=== PATIENT | male | born 1965 | race Caucasian/White ===

== ENCOUNTER 2023-02-17 22:36 | Emergency (ER) | payer OTHER ==
--- NOTE | 2023-02-17 23:31 | ERPHSYRPT ---
- History of Present Illness Source: patient, EMS Exam Limitations: other (Poor historian) Patient Subjective Stated Complaint: pt states he got dizzy while outside on his porch and fell backwards onto a table. states he hit his head and his neck on the table. and c/o pain in his rt hip Triage Nursing Assessment: pt alert and oriented, answers questions approp. pt arrive per ambulance and transfers to stretcher with assist of 3. c collar in place. pt moves all extremities without diff. pedal pulse and cap refill wnl. denies numbness or tingling. Physician History: 57 yo WM who was visiting his sister bent over to put his cigarette out became dizzy and fell backward, hitting a table. Pt brought into ER per EMS w C-collar in place. He was given 4mg IV Morphine/4mg IV Zofran per EMS. He complains of a LINCOLN/C-spine pain/Superior T-spine pain which he rates an 8 overall. Pt has a h/o DM/HTN/CAD/Multiple stents/COPD/Tobacco abuse. He denies chest pain/dyspnea/focal weakness. Occurred: just prior to arrival Reason for Fall: became dizzy Injuries/Pain Location: head, neck, back Loss of Consciousness: brief (seconds) Quality: sharpness Severity of Pain-Max: severe Severity of Pain-Current: severe Modifying Factors: Improves With: movement Associated Symptoms (Fall): denies symptoms, dizziness Allergies/Adverse Reactions: No Known Drug Allergies Allergy (Verified 02/17/23 22:59) Home Medications: Atorvastatin Calcium [Lipitor] 80 mg PO DAILY 02/17/23 [History] Clopidogrel Bisulfate [Plavix] 75 mg PO DAILY 02/17/23 [History] carvediloL [Carvedilol] 25 mg PO BID 02/17/23 [History] clonazePAM [Klonopin] 1 mg PO TID 02/17/23 [History] hydrOXYzine HCL [Hydroxyzine HCl] 20 mg PO HS 02/17/23 [History] Hx Tetanus, Diphtheria Vaccination/Date Given: Yes Hx Influenza Vaccination/Date Given: Yes Hx Pneumococcal Vaccination/Date Given: No Immunizations Up to Date: Yes Travel Risk - International Travel Have you traveled outside of the country in past 3 weeks: No - Coronavirus Screening Are you exhibiting any of the following symptoms?: No Close contact with a COVID-19 positive Pt in past 14-21 Days: No - Vaccine Status Have you recieved a Covid-19 vaccination: Yes Sales And Production Manager: [employer] - Review of Systems Constitutional: No Symptoms Eyes: No Symptoms Ears, Nose, & Throat: No Symptoms, Nose Pain Respiratory: No Symptoms Cardiac: No Symptoms Abdominal/Gastrointestinal: No Symptoms Genitourinary Symptoms: No Symptoms Musculoskeletal: Back Pain, Neck Pain Skin: No Symptoms Neurological: No Symptoms Psychological: No Symptoms Endocrine: No Symptoms, Excessive Sweating Hematologic/Lymphatic: No Symptoms Immunological/Allergic: No Symptoms - Past Medical History Cardiac History: Coronary Artery Disease, High Cholesterol, Hypertension Respiratory History: COPD Endocrine Medical History: Diabetes Type II - Past Surgical History Past Surgical History: Yes Cardiac: Cardiac Catheterization, Cardiac Stent Other Surgical History: cervical fusion - Social History Smoking Status: Current every day smoker How long have you smoked: 41yrs Exposure to second hand smoke: No Drug Use: none Patient Lives Alone: No - Nursing Vital Signs Nursing Vital Signs: Initial Vital Signs Temperature 97.3 F 02/17/23 22:42 Pulse Rate 109 H 02/17/23 22:42 Respiratory Rate 16 02/17/23 22:42 Blood Pressure 124/75 02/17/23 22:42 O2 Sat by Pulse Oximetry 88 L 02/17/23 22:42 Pain Scale Pain Intensity 5 Tachy/Borderline sats - Florin Coma Score Best Eye Response (Questa): (4) open spontaneously Best Verbal Response (Questa): (5) oriented Best Motor Response (Florin): (6) obeys commands Florin Total: 15 - Physical Exam General Appearance: no apparent distress Head Injury: tenderness (Mild occiput TTP) Eye Exam: PERRL/EOMI, eyes nml inspection ENT Exam: airway nml, No evidence of ENT injury, No clear fluid (ears), No clear fluid (nose) Neck Exam: supple (C-spine TTP(C-collar in place)) Respiratory/Chest Exam: rales (Faint rales B bases), No chest tenderness, No respiratory distress Cardiovascular Exam: normal heart sounds, regular rate/rhythm, normal peripheral pulses, No murmur Gastrointestinal Exam: soft, normal bowel sounds, No tenderness Back Exam: vertebral tenderness (Superior T-spine TTP) Extremity Exam: normal inspection, pelvis stable Peripheral Pulses: carotid (R): 2+, carotid (L): 2+ Neurologic Exam: alert, oriented x 3, cooperative, maintenance welder II-XII nml as tested, sensation nml, No motor deficits Skin Exam: normal color, warm, dry SpO2 Interpretation: borderline oxygenation SpO2: 88 O2 Delivery: Room Air - Course Nursing assessment & vital signs reviewed: Yes EKG Interpreted by Me: RATE (Sinus tach/Rate 100/Normal QT-QTc/Flat Twaves/No acute ST changes) - CT Exams Head CT Interpretation: Tele-radiologist Report (Nothing acute) Cervical Spine CT Interpretation: Tele-radiologist Report (No fx) Thoracic Spine CT Interpretation: Tele-radiologist Report (No fx RLL mass) Ordered Tests: Active Orders 24 hr Category Date Time Status EKG-ER Only STAT Care 02/17/23 23:25 Completed CERVICAL SPINE WO CONTRAST [CT] Stat Exams 02/17/23 23:24 Completed HEAD WITHOUT CONTRAST [CT] Stat Exams 02/17/23 23:23 Completed THORACIC SPINE W/O CONTRAST [CT] Stat Exams 02/17/23 23:24 Completed Alcohol [ETHYL ALCOHOL] Stat Lab 02/18/23 00:10 Completed TROPONIN Q4H Lab 02/18/23 01:45 Completed TROPONIN Q4H Lab 02/18/23 07:30 Ordered Urine Triage Profile Stat Lab 02/17/23 23:25 Ordered Lab/Rad Data: Laboratory Result Diagrams 02/17/23 00:10 02/17/23 00:10 Laboratory Results 02/18/23 02/18/23 02/17/23 Range/Units 01:45 00:10 00:10 WBC (4.0-10.5) x10^3/uL RBC (4.1-5.6) x10^6/uL Hgb (12.5-18.0) g/dL Hct (42-50) % MCV (78-100) fL MCH (26-32) pg MCHC (32-36) g/dL RDW (11.5-14.0) % Plt Count (150-450) x10^3/uL MPV (7.5-11.0) fL Gran % (36.0-66.0) % Immature Gran % (Auto) (0.00-0.4) % Nucleat RBC Rel Count (0.00-0.1) % Eos # (Auto) (0-0.5) x10^3/uL Immature Gran # (Auto) (0.00-0.03) x10^3u/L Absolute Lymphs (auto) (1.0-4.6) x10^3/uL Absolute Monos (auto) (0.0-1.3) x10^3/uL Absolute Nucleated RBC (0.00-0.01) x10^3u/L Lymphocytes % (24.0-44.0) % Monocytes % (0.0-12.0) % Eosinophils % (0.00-5.0) % Basophils % (0.0-0.4) % Absolute Granulocytes (1.4-6.9) x10^3/uL Basophils # (0-0.4) x10^3/uL PT (9.4-12.5) SECONDS INR (0.8-3.0) APTT (25.1-36.5) SECONDS Sodium (137-145) mmol/L Potassium (3.5-5.1) mmol/L Chloride (98-107) mmol/L Carbon Dioxide (22-30) mmol/L Anion Gap (5-15) MEQ/L BUN (9-20) mg/dL Creatinine (0.66-1.25) mg/dL Estimated GFR ML/MIN Glucose (74-106) mg/dL Calcium (8.4-10.2) mg/dL Total Bilirubin (0.2-1.3) mg/dL AST (17-59) U/L ALT (0-50) U/L Alkaline Phosphatase (38-126) U/L Troponin I < 0.012 < 0.012 (0.000-0.034) ng/mL Serum Total Protein (6.3-8.2) g/dL Albumin (3.5-5.0) g/dL Ethyl Alcohol < 10 (0-10) mg/dL Slides for Path Review 02/17/23 02/17/23 02/17/23 Range/Units 00:10 00:10 00:10 WBC 5.3 (4.0-10.5) x10^3/uL RBC 5.03 (4.1-5.6) x10^6/uL Hgb 14.8 (12.5-18.0) g/dL Hct 44.4 (42-50) % MCV 88.3 (78-100) fL MCH 29.4 (26-32) pg MCHC 33.3 (32-36) g/dL RDW 13.4 (11.5-14.0) % Plt Count 75 L (150-450) x10^3/uL MPV 11.1 H (7.5-11.0) fL Gran % 70.4 H (36.0-66.0) % Immature Gran % (Auto) 0.8 H (0.00-0.4) % Nucleat RBC Rel Count 0.0 (0.00-0.1) % Eos # (Auto) 0.08 (0-0.5) x10^3/uL Immature Gran # (Auto) 0.04 H (0.00-0.03) x10^3u/L Absolute Lymphs (auto) 0.81 L (1.0-4.6) x10^3/uL Absolute Monos (auto) 0.59 (0.0-1.3) x10^3/uL Absolute Nucleated RBC 0.00 (0.00-0.01) x10^3u/L Lymphocytes % 15.3 L (24.0-44.0) % Monocytes % 11.1 (0.0-12.0) % Eosinophils % 1.5 (0.00-5.0) % Basophils % 0.9 (0.0-0.4) % Absolute Granulocytes 3.74 (1.4-6.9) x10^3/uL Basophils # 0.05 (0-0.4) x10^3/uL PT 10.3 (9.4-12.5) SECONDS INR 0.94 (0.8-3.0) APTT 26.3 (25.1-36.5) SECONDS Sodium 137 (137-145) mmol/L Potassium 3.3 L (3.5-5.1) mmol/L Chloride 106 (98-107) mmol/L Carbon Dioxide 23 (22-30) mmol/L Anion Gap 11.7 (5-15) MEQ/L BUN 8 L (9-20) mg/dL Creatinine 0.92 (0.66-1.25) mg/dL Estimated GFR > 60.0 ML/MIN Glucose 187 H (74-106) mg/dL Calcium 8.1 L (8.4-10.2) mg/dL Total Bilirubin 0.50 (0.2-1.3) mg/dL AST 25 (17-59) U/L ALT 25 (0-50) U/L Alkaline Phosphatase 77 (38-126) U/L Troponin I (0.000-0.034) ng/mL Serum Total Protein 6.2 L (6.3-8.2) g/dL Albumin 3.4 L (3.5-5.0) g/dL Ethyl Alcohol (0-10) mg/dL Slides for Path Review YES - Progress Progress: improved Progress Note: 02/18/23 02:35 Nursing note and vital signs reviewed No food or housing insecurities notified All lab results reviewed and shared w pt All CT results reviewed and shared w pt Additional history per sister Pt refused observational admit for syncope/Lung mass work up/possible MRA-MRI in AM No focal weakness during stay Pt/sister alerted of RLL mass and need to f/u for biopsy Pain control adequate w 4mg IV MSO4 per EMS Counseled pt/family regarding: lab results, diagnosis, need for follow-up, rad results - Departure Clinical Impression: Syncope and collapse, Right lower lobe lung mass, Minor closed head injury, Cervical strain Condition: Stable Critical Care Time: No Referrals: VENKAT MACE MD [Primary Care Provider] - Follow up/PCP as directed Instructions: Syncope (Fainting) (DC), Minor Head Injury (DC), Neck Sprain (DC) Additional Instructions: Follow up with your family MD in 1 day Ice contused areas for 12-24 hours Motrin/Tylenol for pain Return to ER for worsening of condition No driving until cleared by your physician
[2023-02-18 00:20] LABS: Absolute Neutrophil Ct (ANC) 3.74 x10^3/uL (1.4-6.9); BASOPHIL % 0.9 % (0.0-0.4); Basophil (Absolute #) 0.05 x10^3/uL (0-0.4); Eosinophil % 1.5 % (0.00-5.0); Eosinophil (Absolute #) 0.08 x10^3/uL (0-0.5); Hematocrit 44.4 % (42-50); Hemoglobin 14.8 g/dL (12.5-18.0); IMMATURE GRAN # 0.04 x10^3u/L (0.00-0.03); IMMATURE GRAN % 0.8 % (0.00-0.4); Lymphocyte (Absolute #) 0.81 x10^3/uL (1.0-4.6); Lymphocytes % 15.3 % (24.0-44.0); Mean Cell Volume 88.3 fL (78-100); Mean Corpuscular Hemoglobin 29.4 pg (26-32); Mean Corpuscular Hgb Concent. 33.3 g/dL (32-36); Mean Platelet Volume 11.1 fL (7.5-11.0); Monocyte (Absolute #) 0.59 x10^3/uL (0.0-1.3); Monocytes % 11.1 % (0.0-12.0); Neutrophil % 70.4 % (36.0-66.0); Platelet Count 75 x10^3/uL (150-450); Red Blood Count 5.03 x10^6/uL (4.1-5.6); Red Cell Distribution Width 13.4 % (11.5-14.0); White Blood Count 5.3 x10^3/uL (4.0-10.5)
--- NOTE | 2023-02-18 00:20 | XRAY ---
CLINICAL HISTORY:Fall COMPARISON:None TECHNIQUE:Axial noncontrast CT scan of the brain was performed from the skull base to the high parietal region. FINDINGS: The visualized brain parenchyma shows normal appearance. Mackey-white matter differentiation is maintained. No midline shifts or deformity. No intracerebral or extra axial hematoma. Normal size and configuration of the cerebral ventricles. Normal CT appearance of the posterior fossa structures namely the cerebellar hemispheres, brainstem and cerebellar peduncles. The IACs are unremarkable. The cerebello-pontine angles are clear. The pituitary gland, the pineal gland, the optic chiasm is unremarkable. The osseous structures in the skull base are unremarkable. No definite calvarium fractures. The scanned paranasal sinuses are clear. IMPRESSION: The non-enhanced CT study for the brain is unremarkable. Electronically Signed by: Scarlet Ferreira MD. (02/17/2023 23:20:05 LEATHER TOOLER)
[2023-02-18 00:32] LABS: ALBUMIN 3.4 g/dL (3.5-5.0); ALKALINE PHOSPHATASE 77 U/L (38-126); ANION GAP 11.7 MEQ/L (5-15); BLOOD UREA NITROGEN 8 mg/dL (9-20); CHLORIDE 106 mmol/L (98-107); Calcium 8.1 mg/dL (8.4-10.2); Carbon Dioxide 23 mmol/L (22-30); Creatinine 1 0.92 mg/dL (0.66-1.25); EST GLOMERULAR FILTRATION RATE > 60.0 ML/MIN; Glucose 187 mg/dL (74-106); Potassium 3.3 mmol/L (3.5-5.1); SGOT/AST 25 U/L (17-59); SGPT/ALT 25 U/L (0-50); SODIUM 137 mmol/L (137-145); Total Protein 6.2 g/dL (6.3-8.2)
[2023-02-18 00:34] LABS: INR 0.94 (0.8-3.0); PROTIME 10.3 SECONDS (9.4-12.5); PTT 26.3 SECONDS (25.1-36.5)
--- NOTE | 2023-02-18 00:54 | XRAY ---
CLINICAL HISTORY:Trauma COMPARISON:None. TECHNIQUE:Multiple axial, sagittal, and coronal images of CT thoracic spine without contrast was submitted in bone and soft tissue window. FINDINGS: Normal bone density is seen. Maintained curvature of the thoracic spine is seen. Mild degenerative changes are seen with multi-level small anterior osteophytes. Minimal to mild intervertebral disc space reductions at a few levels with intra-discal gas are seen. No definite fracture line or subluxation is seen. Maintained vertebral body height and alignment is seen. No paravertebral soft tissue swelling is seen. Spinal fixation screws and disc spacers are noted at the visualized lower cervical levels. Visualized lungs show multiple scattered calcified nodules in both lungs. A soft tissue nodule/mass is noted in the right lower lobe measuring 1.6 x 1.4 cm. Subcentimeter mediastinal lymph nodes are noted. IMPRESSION: Mild degenerative changes are seen with multi-level small anterior osteophytes. Minimal to mild intervertebral disc space reductions at a few levels with intra-discal gas is seen. No acute fracture or dislocation is seen. Visualized lungs show a soft tissue nodule/mass in the right lower lobe measuring 1.6 x 1.4 cm. Further clinical correlation is advised including a close follow or a CT-guided biopsy. Electronically Signed by: Scarlet Ferreira MD. (02/17/2023 23:52:24 COATING MIXER TENDER)
--- NOTE | 2023-02-18 01:04 | XRAY ---
CLINICAL HISTORY:Trauma COMPARISON:None TECHNIQUE:Axial CT of the cervical spine was performed with sagittal and coronal reconstructions without contrast. FINDINGS: Metallic artifact seen at C5-C6 and C6-C7 due to the previous cervical spine since obscuring details. Reversal of physiological cervical lordosis due to muscular spasm. The vertebral bodies are normal in height. No lytic or sclerotic bone lesion. The craniovertebral measures are unremarkable. Intervertebral disc spaces are preserved. Normal disc height is noted IMPRESSION: No acute fracture noted. Electronically Signed by: Scarlet Ferreira MD. (02/18/2023 00:02:37 MOTOR BUS DRIVER)
[2023-02-18 02:20] LABS: Slide Review 1 YES
[2023-02-18 02:32] VITALS: BP 111/69; PULSE 94
[2023-02-18 02:39] VITALS: O2SAT 88
== END 2023-02-18 02:38 | disposition home or self-care (01) ==
LOC: ED 22:36
DX: S09.90XA Unspecified injury of head, initial encounter (principal); S16.1XXA Strain of muscle, fascia and tendon at neck level, initial encounter; W18.39XA Other fall on same level, initial encounter; Y92.007 Garden or yard of unspecified non-institutional (private) residence as the place of occurrence of the external cause; R55 Syncope and collapse; R91.8 Other nonspecific abnormal finding of lung field; R51.9 Headache, unspecified; M54.6 Pain in thoracic spine; E11.9 Type 2 diabetes mellitus without complications; I10 Essential (primary) hypertension; E78.5 Hyperlipidemia, unspecified; Z79.02 Long term (current) use of antithrombotics/antiplatelets; Z79.899 Other long term (current) drug therapy; Z72.0 Tobacco use
CPT/HCPCS: 36415; 70450; 72125; 72128; 80053; 82077; 84484; 85025; 85610; 85730; 93005; 99283